=== PATIENT | male | born 1975 | race Caucasian/White ===

== ENCOUNTER 2016-09-04 01:50 | Emergency (ER) | payer SELFPAY ==
[~2016-09-04] VITALS: Ht 193 cm; Wt 88.1 kg
[2016-09-04 03:52] VITALS: BP 133/72
== END 2016-09-04 04:24 | disposition home or self-care (01) ==
LOC: EME 01:50
DX: I83.892 Varicose veins of left lower extremity with other complications (principal)
CPT/HCPCS: 99281; 99283